=== PATIENT | male | born 1960 | race Caucasian/White ===

== ENCOUNTER 2020-11-13 16:27 | Inpatient (IN) ==
[2020-11-17] MEDS ORDERED: KETOTIFEN FUMARATE OP PRN (19:44)
[2020-11-18 07:50] LABS: Basophils # 0.1 K/mcL (0.0-0.2); Basophils % 0.4 %; Eosinophils # 0.4 K/mcL (0.0-0.6); Eosinophils % 3.3 %; Hemoglobin 11.2 g/dL (12.9-16.9); Immature Granulocytes % 0.8 % (0-4); Lymphocytes # 1.6 K/mcL (0.6-4.6); Lymphocytes % 14.2 %; Mean Corpuscular HGB Conc 32.9 g/dL (31.6-35.5); Mean Corpuscular Hemoglobin 30.1 pg (28.0-33.3); Mean Corpuscular Volume 91.4 fL (83.0-100.0); Mean Platelet Volume 9.3 fL (9.4-12.4); Monocytes # 0.9 K/mcL (0.0-1.3); Monocytes % 7.5 %; Neutrophils # 8.4 K/mcL (1.6-8.9); Platelet Count 382 K/mcL (140-400); Red Blood Count 3.72 M/mcL (4.19-5.50); Red Cell Distribution Width 13.6 % (11.5-14.5); Segmented Neutrophils % 73.8 %; White Blood Count 11.4 K/mcL (4.3-11.1)
[2020-11-18] MEDS: Metoprolol XL (24 HR) Succ 50 MG TAB.ER.24H PO SCH (07:51)
[2020-11-18] MEDS: Furosemide 40 MG TABLET PO SCH (07:51)
[2020-11-18] MEDS: *HR* OxyCODONE ER (12 HR) 10 MG TABLET PO PRN ×2 (07:51→21:24)
[2020-11-18 08:30] LABS: BUN/Creatinine Ratio 23 (6-26); Blood Urea Nitrogen 22 mg/dL (6-20); Carbon Dioxide 29 mEq/L (23-29); Chloride 97 mEq/L (98-107); Glucose 43 mg/dL (70-105); Osmolality,Calculated 274 (280-300); Potassium 4.1 mEq/L (3.5-5.1); Sodium 132 mEq/L (136-145); eGFR For African Americans > 60 (> 60); eGFR For Non-African Americans > 60 (> 60)
[2020-11-18] MEDS ORDERED: *HR* Dextrose 50 % in Water (Vial) 50 ML VIAL IVP PRN (16:32)
[2020-11-18] MEDS ORDERED: Dextrose Gel 15 GM/37.5 ML TUBE PO PRN ×4 (16:32→17:13)
[2020-11-18] MEDS ORDERED: D5% in Water 1,000 ML IVC PRN ×2 (16:32→17:13)
[2020-11-18] MEDS ORDERED: Insulin LISPRO 300 UNITS/3 ML VIAL SUBQ SCH ×2 (16:45→21:00)
[2020-11-18] MEDS: Insulin LISPRO 300 UNITS/3 ML VIAL SUBQ SCH ×2 (17:25→21:23)
[2020-11-18] MEDS ORDERED: Insulin LISPRO 300 UNITS/3 ML VIAL SUBQ STA (18:09)
[2020-11-18] MEDS: *HR* Heparin 5,000 UNIT/ML VIAL SQ SCH (21:22)
[2020-11-18 22:24] LABS: Estimated Average Glucose 260 mg/dl; Hemoglobin A1C 10.7 %
[2020-11-19] MEDS: *HR* Heparin 5,000 UNIT/ML VIAL SQ SCH ×3 (05:22→20:11)
[2020-11-19 05:49] LABS: Basophils # 0.1 K/mcL (0.0-0.2); Basophils % 0.7 %; Eosinophils # 0.4 K/mcL (0.0-0.6); Eosinophils % 3.8 %; Hematocrit 32.5 % (37.5-50.1); Hemoglobin 10.6 g/dL (12.9-16.9); Immature Granulocytes % 0.9 % (0-4); Lymphocytes # 1.8 K/mcL (0.6-4.6); Lymphocytes % 18.3 %; Mean Corpuscular HGB Conc 32.6 g/dL (31.6-35.5); Mean Corpuscular Hemoglobin 29.6 pg (28.0-33.3); Mean Corpuscular Volume 90.8 fL (83.0-100.0); Mean Platelet Volume 9.6 fL (9.4-12.4); Monocytes # 0.6 K/mcL (0.0-1.3); Monocytes % 6.3 %; Neutrophils # 6.8 K/mcL (1.6-8.9); Platelet Count 415 K/mcL (140-400); Red Blood Count 3.58 M/mcL (4.19-5.50); Red Cell Distribution Width 13.6 % (11.5-14.5); White Blood Count 9.7 K/mcL (4.3-11.1)
[2020-11-19 06:07] LABS: BUN/Creatinine Ratio 21 (6-26); Blood Urea Nitrogen 20 mg/dL (6-20); Calcium 8.6 mg/dL (8.6-10.3); Carbon Dioxide 26 mEq/L (23-29); Chloride 95 mEq/L (98-107); Glucose 299 mg/dL (70-105); Magnesium 1.8 mg/dL (1.6-2.6); Osmolality,Calculated 280 (280-300); Sodium 128 mEq/L (136-145); eGFR For African Americans > 60 (> 60); eGFR For Non-African Americans > 60 (> 60)
[2020-11-19] MEDS: *HR* Insulin Regular U-500 500 UNIT/ML SUBQ SCH ×3 (09:15→17:02)
[2020-11-19] MEDS: *HR* OxyCODONE ER (12 HR) 10 MG TABLET PO PRN ×2 (09:15→20:21)
[2020-11-19] MEDS: Metoprolol XL (24 HR) Succ 50 MG TAB.ER.24H PO SCH (09:16)
[2020-11-19] MEDS: Furosemide 40 MG TABLET PO SCH (09:16)
[2020-11-19] MEDS: Insulin LISPRO 300 UNITS/3 ML VIAL SUBQ SCH ×3 (09:19→17:03)
[2020-11-19] MEDS: Aspirin Enteric Coated 81 MG Tablet PO SCH (09:23)
[2020-11-20] MEDS: *HR* Heparin 5,000 UNIT/ML VIAL SQ SCH ×3 (05:39→20:50)
[2020-11-20] MEDS: Insulin LISPRO 300 UNITS/3 ML VIAL SUBQ SCH ×5 (09:16→20:50)
[2020-11-20] MEDS: *HR* Insulin Regular U-500 500 UNIT/ML SUBQ SCH ×3 (12:05→17:47)
[2020-11-20] MEDS: Furosemide 40 MG TABLET PO SCH (12:05)
[2020-11-20] MEDS: Metoprolol XL (24 HR) Succ 50 MG TAB.ER.24H PO SCH (12:05)
[2020-11-20] MEDS: *HR* OxyCODONE ER (12 HR) 10 MG TABLET PO PRN (20:51)
[2020-11-21] MEDS: *HR* Heparin 5,000 UNIT/ML VIAL SQ SCH ×3 (06:14→20:02)
[2020-11-21] MEDS: Insulin LISPRO 300 UNITS/3 ML VIAL SUBQ SCH ×4 (09:50→19:56)
[2020-11-21] MEDS: *HR* Insulin Regular U-500 500 UNIT/ML SUBQ SCH ×3 (09:51→16:53)
[2020-11-21] MEDS: *HR* OxyCODONE ER (12 HR) 10 MG TABLET PO PRN ×2 (09:51→22:00)
[2020-11-21] MEDS: Furosemide 40 MG TABLET PO SCH (09:51)
[2020-11-21] MEDS: Metoprolol XL (24 HR) Succ 50 MG TAB.ER.24H PO SCH (09:52)
[2020-11-22] MEDS: *HR* Heparin 5,000 UNIT/ML VIAL SQ SCH ×3 (06:05→20:19)
[2020-11-22] MEDS: *HR* Insulin Regular U-500 500 UNIT/ML SUBQ SCH ×3 (09:08→17:34)
[2020-11-22] MEDS: *HR* OxyCODONE ER (12 HR) 10 MG TABLET PO SCH ×2 (09:19→20:18)
[2020-11-22] MEDS: Metoprolol XL (24 HR) Succ 50 MG TAB.ER.24H PO SCH (09:20)
[2020-11-22] MEDS: Insulin LISPRO 300 UNITS/3 ML VIAL SUBQ SCH ×4 (09:20→20:23)
[2020-11-22] MEDS: Furosemide 40 MG TABLET PO SCH (09:20)
[2020-11-23] MEDS: *HR* Heparin 5,000 UNIT/ML VIAL SQ SCH ×3 (05:47→20:29)
[2020-11-23] MEDS: Insulin LISPRO 300 UNITS/3 ML VIAL SUBQ SCH ×4 (07:58→20:32)
[2020-11-23] MEDS: Metoprolol XL (24 HR) Succ 50 MG TAB.ER.24H PO SCH (07:59)
[2020-11-23] MEDS: Furosemide 40 MG TABLET PO SCH (07:59)
[2020-11-23] MEDS: Aspirin Enteric Coated 81 MG Tablet PO SCH (07:59)
[2020-11-23] MEDS: *HR* OxyCODONE ER (12 HR) 10 MG TABLET PO SCH ×2 (07:59→20:29)
[2020-11-23] MEDS: *HR* Insulin Regular U-500 500 UNIT/ML SUBQ SCH ×3 (09:19→17:15)
[2020-11-24] MEDS: *HR* Heparin 5,000 UNIT/ML VIAL SQ SCH ×3 (05:31→20:41)
[2020-11-24] MEDS: Insulin LISPRO 300 UNITS/3 ML VIAL SUBQ SCH ×4 (07:42→22:07)
[2020-11-24] MEDS: *HR* Insulin Regular U-500 500 UNIT/ML SUBQ SCH ×3 (09:21→17:33)
[2020-11-24] MEDS: *HR* OxyCODONE ER (12 HR) 10 MG TABLET PO SCH ×2 (09:31→20:42)
[2020-11-24] MEDS: Metoprolol XL (24 HR) Succ 50 MG TAB.ER.24H PO SCH (09:32)
[2020-11-24] MEDS: Furosemide 40 MG TABLET PO SCH (09:40)
[2020-11-25] MEDS: *HR* Heparin 5,000 UNIT/ML VIAL SQ SCH ×3 (05:26→22:20)
[2020-11-25] MEDS: Furosemide 40 MG TABLET PO SCH ×2 (07:37→08:06)
[2020-11-25] MEDS: Metoprolol XL (24 HR) Succ 50 MG TAB.ER.24H PO SCH (08:06)
[2020-11-25] MEDS: *HR* OxyCODONE ER (12 HR) 10 MG TABLET PO SCH ×2 (08:06→22:17)
[2020-11-25] MEDS: *HR* Insulin Regular U-500 500 UNIT/ML SUBQ SCH ×3 (09:11→16:46)
[2020-11-25] MEDS: Insulin LISPRO 300 UNITS/3 ML VIAL SUBQ SCH ×4 (09:13→22:19)
[2020-11-26] MEDS: *HR* Heparin 5,000 UNIT/ML VIAL SQ SCH ×3 (05:40→22:15)
[2020-11-26] MEDS: *HR* OxyCODONE ER (12 HR) 10 MG TABLET PO SCH ×2 (08:25→20:37)
[2020-11-26] MEDS: Metoprolol XL (24 HR) Succ 50 MG TAB.ER.24H PO SCH (08:26)
[2020-11-26] MEDS: Furosemide 40 MG TABLET PO SCH (08:26)
[2020-11-26] MEDS ORDERED: Furosemide 20 MG TABLET PO ONE (09:50)
[2020-11-26] MEDS: Insulin LISPRO 300 UNITS/3 ML VIAL SUBQ SCH ×4 (09:59→22:03)
[2020-11-26] MEDS: *HR* Insulin Regular U-500 500 UNIT/ML SUBQ SCH ×3 (10:00→19:01)
[2020-11-26] MEDS: Aspirin Enteric Coated 81 MG Tablet PO SCH (10:12)
[2020-11-27] MEDS: Ondansetron ODT 4 MG TAB.RAPDIS SL PRN ×2 (05:48→21:26)
[2020-11-27] MEDS: *HR* Heparin 5,000 UNIT/ML VIAL SQ SCH ×3 (05:49→23:31)
[2020-11-27] MEDS ORDERED: Nitroglycerin 0.4 MG TAB.SUBL SL PRN (06:11)
[2020-11-27] MEDS ORDERED: Aspirin 325 MG TABLET PO ONE (06:12)
[2020-11-27] MEDS: *HR* OxyCODONE ER (12 HR) 10 MG TABLET PO SCH ×2 (07:54→21:21)
[2020-11-27] MEDS: Metoprolol XL (24 HR) Succ 50 MG TAB.ER.24H PO SCH (07:55)
[2020-11-27] MEDS: Insulin LISPRO 300 UNITS/3 ML VIAL SUBQ SCH ×3 (07:56→16:51)
[2020-11-27] MEDS: *HR* Insulin Regular U-500 500 UNIT/ML SUBQ SCH ×3 (07:56→16:50)
[2020-11-27] MEDS: Furosemide 40 MG TABLET PO SCH (07:57)
[2020-11-27] MEDS: Simethicone 80 MG TAB.CHEW PO PRN ×2 (09:46→16:50)
[2020-11-28] MEDS: Insulin LISPRO 300 UNITS/3 ML VIAL SUBQ SCH ×5 (01:33→20:14)
[2020-11-28] MEDS: Simethicone 80 MG TAB.CHEW PO PRN (06:11)
[2020-11-28] MEDS: *HR* Heparin 5,000 UNIT/ML VIAL SQ SCH ×3 (06:11→20:14)
[2020-11-28 08:13] LABS: Basophils # 0.1 K/mcL (0.0-0.2); Basophils % 0.9 %; Eosinophils # 0.3 K/mcL (0.0-0.6); Eosinophils % 2.2 %; Hematocrit 34.7 % (37.5-50.1); Hemoglobin 10.8 g/dL (12.9-16.9); Immature Granulocytes % 0.8 % (0-4); Lymphocytes # 1.7 K/mcL (0.6-4.6); Lymphocytes % 13.3 %; Mean Corpuscular HGB Conc 31.1 g/dL (31.6-35.5); Mean Corpuscular Hemoglobin 29.3 pg (28.0-33.3); Mean Corpuscular Volume 94.3 fL (83.0-100.0); Mean Platelet Volume 9.3 fL (9.4-12.4); Monocytes # 0.8 K/mcL (0.0-1.3); Monocytes % 6.3 %; Neutrophils # 9.8 K/mcL (1.6-8.9); Nucleated Red Blood Cells 0.2 /100 WBC (0); Platelet Count 344 K/mcL (140-400); Red Blood Count 3.68 M/mcL (4.19-5.50); Red Cell Distribution Width 15.3 % (11.5-14.5); Segmented Neutrophils % 76.5 %; White Blood Count 12.8 K/mcL (4.3-11.1)
[2020-11-28 08:29] LABS: Calcium 9.4 mg/dL (8.6-10.3); Potassium 4.7 mEq/L (3.5-5.1)
[2020-11-28] MEDS: Furosemide 40 MG TABLET PO SCH (09:15)
[2020-11-28] MEDS: *HR* OxyCODONE ER (12 HR) 10 MG TABLET PO SCH ×2 (09:15→20:13)
[2020-11-28] MEDS: *HR* Insulin Regular U-500 500 UNIT/ML SUBQ SCH ×3 (09:19→16:41)
[2020-11-28] MEDS: Metoprolol XL (24 HR) Succ 50 MG TAB.ER.24H PO SCH (09:21)
[2020-11-28] MEDS: *HR* Dextrose 50 % in Water (Vial) 50 ML VIAL IVP PRN ×2 (16:36→16:37)
[2020-11-28] MEDS: D5% in 0.9% NACL 1,000 ML IVC SCH (17:03)
[2020-11-28] MEDS ORDERED: *HR* Metoprolol 5 MG/5 ML VIAL IVP ONE ×2 (17:04→17:06)
[2020-11-28] MEDS ORDERED: Metoprolol XL (24 HR) Succ 50 MG TAB.ER.24H PO STA (17:07)
[2020-11-28] MEDS ORDERED: *HR* Metoprolol 5 MG/5 ML VIAL IVP PRN (20:11)
[2020-11-29] MEDS: D5% in 0.9% NACL 1,000 ML IVC SCH (03:16)
[2020-11-29] MEDS: *HR* Heparin 5,000 UNIT/ML VIAL SQ SCH ×3 (06:13→21:39)
[2020-11-29] MEDS: Insulin LISPRO 300 UNITS/3 ML VIAL SUBQ SCH ×4 (07:56→21:42)
[2020-11-29] MEDS: *HR* OxyCODONE ER (12 HR) 10 MG TABLET PO SCH ×2 (08:09→21:39)
[2020-11-29] MEDS: Furosemide 40 MG TABLET PO SCH (08:10)
[2020-11-29] MEDS ORDERED: Metoprolol XL (24 HR) Succ 25 MG TAB.ER.24H PO SCH ×2 (09:00)
[2020-11-29] MEDS: Simethicone 80 MG TAB.CHEW PO PRN ×2 (12:38→19:34)
[2020-11-30] MEDS: Insulin LISPRO 300 UNITS/3 ML VIAL SUBQ SCH ×6 (00:16→19:51)
[2020-11-30] MEDS: *HR* Heparin 5,000 UNIT/ML VIAL SQ SCH ×3 (06:41→21:16)
[2020-11-30] MEDS: Aspirin Enteric Coated 81 MG Tablet PO SCH (09:16)
[2020-11-30] MEDS: Simethicone 80 MG TAB.CHEW PO PRN ×2 (09:16→20:02)
[2020-11-30] MEDS: *HR* OxyCODONE ER (12 HR) 10 MG TABLET PO SCH ×2 (09:17→21:16)
[2020-11-30] MEDS: Furosemide 40 MG TABLET PO SCH (09:18)
[2020-11-30] MEDS ORDERED: Metoprolol XL (24 HR) Succ 25 MG TAB.ER.24H PO ONE (10:00)
[2020-12-01] MEDS: Insulin LISPRO 300 UNITS/3 ML VIAL SUBQ SCH ×6 (01:20→21:06)
[2020-12-01] MEDS: *HR* Heparin 5,000 UNIT/ML VIAL SQ SCH ×3 (05:08→21:06)
[2020-12-01] MEDS ORDERED: Metoprolol XL (24 HR) Succ 25 MG TAB.ER.24H PO SCH (09:00)
[2020-12-01] MEDS: *HR* OxyCODONE ER (12 HR) 10 MG TABLET PO SCH ×2 (09:22→21:05)
[2020-12-01] MEDS: Furosemide 40 MG TABLET PO SCH (09:22)
[2020-12-01] MEDS: Ondansetron ODT 4 MG TAB.RAPDIS SL PRN (13:20)
[2020-12-02] MEDS: Insulin LISPRO 300 UNITS/3 ML VIAL SUBQ SCH ×5 (00:40→17:09)
[2020-12-02] MEDS: *HR* Heparin 5,000 UNIT/ML VIAL SQ SCH ×3 (06:43→20:58)
[2020-12-02] MEDS: *HR* OxyCODONE ER (12 HR) 10 MG TABLET PO SCH ×2 (08:10→20:58)
[2020-12-02] MEDS: Furosemide 40 MG TABLET PO SCH (08:10)
[2020-12-02] MEDS: Simethicone 80 MG TAB.CHEW PO PRN (10:38)
[2020-12-03] MEDS: *HR* Heparin 5,000 UNIT/ML VIAL SQ SCH ×3 (05:02→21:53)
[2020-12-03] MEDS: Furosemide 40 MG TABLET PO SCH (08:14)
[2020-12-03] MEDS: *HR* OxyCODONE ER (12 HR) 10 MG TABLET PO SCH ×2 (08:14→21:50)
[2020-12-03] MEDS: Insulin LISPRO 300 UNITS/3 ML VIAL SUBQ SCH ×3 (08:15→16:46)
[2020-12-03] MEDS: Aspirin Enteric Coated 81 MG Tablet PO SCH (08:15)
[2020-12-03] MEDS: Nystatin POWDER 30 GM BOTTLE TP SCH (21:56)
[2020-12-04] MEDS: *HR* Heparin 5,000 UNIT/ML VIAL SQ SCH ×3 (05:30→21:11)
[2020-12-04] MEDS: *HR* OxyCODONE ER (12 HR) 10 MG TABLET PO SCH ×2 (08:11→21:12)
[2020-12-04] MEDS: Furosemide 40 MG TABLET PO SCH (08:11)
[2020-12-04] MEDS: Insulin LISPRO 300 UNITS/3 ML VIAL SUBQ SCH ×4 (08:12→21:10)
[2020-12-04] MEDS: Nystatin POWDER 30 GM BOTTLE TP SCH ×2 (08:18→21:12)
[2020-12-04] MEDS: Simethicone 80 MG TAB.CHEW PO PRN (13:57)
[2020-12-05] MEDS: *HR* Heparin 5,000 UNIT/ML VIAL SQ SCH ×3 (05:19→23:01)
[2020-12-05] MEDS: *HR* OxyCODONE ER (12 HR) 10 MG TABLET PO SCH ×2 (08:20→21:22)
[2020-12-05] MEDS: Furosemide 40 MG TABLET PO SCH (08:20)
[2020-12-05] MEDS: Insulin LISPRO 300 UNITS/3 ML VIAL SUBQ SCH ×7 (08:21→21:22)
[2020-12-05] MEDS: Nystatin POWDER 30 GM BOTTLE TP SCH ×2 (08:22→21:22)
[2020-12-05] MEDS: Simethicone 80 MG TAB.CHEW PO PRN (14:41)
[2020-12-06] MEDS: *HR* Heparin 5,000 UNIT/ML VIAL SQ SCH ×3 (06:49→20:32)
[2020-12-06] MEDS: Furosemide 40 MG TABLET PO SCH (08:24)
[2020-12-06] MEDS: *HR* OxyCODONE ER (12 HR) 10 MG TABLET PO SCH ×2 (08:25→20:31)
[2020-12-06] MEDS: Insulin LISPRO 300 UNITS/3 ML VIAL SUBQ SCH ×7 (08:26→20:29)
[2020-12-06] MEDS: Nystatin POWDER 30 GM BOTTLE TP SCH ×2 (08:27→20:31)
[2020-12-06] MEDS: Simethicone 80 MG TAB.CHEW PO PRN (16:14)
[2020-12-07] MEDS: *HR* Heparin 5,000 UNIT/ML VIAL SQ SCH ×3 (05:45→20:31)
[2020-12-07] MEDS: Aspirin Enteric Coated 81 MG Tablet PO SCH (09:15)
[2020-12-07] MEDS: *HR* OxyCODONE ER (12 HR) 10 MG TABLET PO SCH ×2 (09:16→20:30)
[2020-12-07] MEDS: Furosemide 40 MG TABLET PO SCH (09:17)
[2020-12-07] MEDS: Insulin LISPRO 300 UNITS/3 ML VIAL SUBQ SCH ×7 (09:17→20:32)
[2020-12-07] MEDS: Nystatin POWDER 30 GM BOTTLE TP SCH ×2 (09:18→20:32)
[2020-12-08] MEDS: *HR* Heparin 5,000 UNIT/ML VIAL SQ SCH ×3 (05:28→20:33)
[2020-12-08] MEDS: Insulin LISPRO 300 UNITS/3 ML VIAL SUBQ SCH ×7 (09:15→20:31)
[2020-12-08] MEDS: Nystatin POWDER 30 GM BOTTLE TP SCH ×2 (09:15→20:28)
[2020-12-08] MEDS: *HR* OxyCODONE ER (12 HR) 10 MG TABLET PO SCH ×2 (09:15→20:26)
[2020-12-08] MEDS: Furosemide 40 MG TABLET PO SCH (09:15)
[2020-12-09] MEDS: *HR* Heparin 5,000 UNIT/ML VIAL SQ SCH ×3 (08:33→20:09)
[2020-12-09] MEDS: Furosemide 40 MG TABLET PO SCH (08:33)
[2020-12-09] MEDS: *HR* OxyCODONE ER (12 HR) 10 MG TABLET PO SCH ×2 (08:33→20:09)
[2020-12-09] MEDS: Insulin LISPRO 300 UNITS/3 ML VIAL SUBQ SCH ×7 (08:34→20:13)
[2020-12-09] MEDS: Nystatin POWDER 30 GM BOTTLE TP SCH ×2 (08:35→20:10)
[2020-12-09 20:03] VITALS: O2SAT 96
[2020-12-10] MEDS: Furosemide 40 MG TABLET PO SCH (07:51)
[2020-12-10] MEDS: *HR* OxyCODONE ER (12 HR) 10 MG TABLET PO SCH (07:51)
[2020-12-10] MEDS: Aspirin Enteric Coated 81 MG Tablet PO SCH (07:51)
[2020-12-10] MEDS: *HR* Heparin 5,000 UNIT/ML VIAL SQ SCH (07:52)
[2020-12-10] MEDS: Insulin LISPRO 300 UNITS/3 ML VIAL SUBQ SCH ×4 (07:52→11:23)
[2020-12-10] MEDS: Nystatin POWDER 30 GM BOTTLE TP SCH (07:53)
[2020-12-10 08:46] VITALS: BP 124/72; PULSE 65; RESP 17; TEMP 97.4
== END 2020-12-10 14:45 | DRG 560 ==
LOC: INPPIK 11-17 23:56
PROVIDERS: ADMIT Family Medicine; ATTEND Family Medicine

== ENCOUNTER 2021-03-24 17:29 | Inpatient (IN) ==
[2021-03-26] MEDS ORDERED: Simethicone 80 MG TAB.CHEW PO PRN (00:20)
[2021-03-26] MEDS ORDERED: KETOTIFEN FUMARATE OP PRN (00:45)
[2021-03-26] MEDS ORDERED: *HR* OxyCODONE/APAP 10/325 TABLET PO ONE (02:17)
[2021-03-26 06:45] LABS: Basophils # 0.1 K/mcL (0.0-0.2); Basophils % 0.7 %; Eosinophils # 0.5 K/mcL (0.0-0.6); Eosinophils % 3.8 %; Hematocrit 37.8 % (37.5-50.1); Hemoglobin 11.7 g/dL (12.9-16.9); Immature Granulocytes % 0.5 % (0-4); Lymphocytes # 1.3 K/mcL (0.6-4.6); Lymphocytes % 10.9 %; Mean Corpuscular Hemoglobin 25.3 pg (28.0-33.3); Mean Corpuscular Volume 81.6 fL (83.0-100.0); Mean Platelet Volume 9.7 fL (9.4-12.4); Monocytes % 8.3 %; Neutrophils # 8.9 K/mcL (1.6-8.9); Platelet Count 354 K/mcL (140-400); Red Blood Count 4.63 M/mcL (4.19-5.50); Red Cell Distribution Width 17.2 % (11.5-14.5); Segmented Neutrophils % 75.8 %; White Blood Count 11.8 K/mcL (4.3-11.1)
[2021-03-26 07:06] LABS: Calcium 8.8 mg/dL (8.6-10.3); Potassium 4.6 mEq/L (3.5-5.1)
[2021-03-26 07:21] VITALS: TEMP 97.6
[2021-03-26] MEDS: Insulin LISPRO 300 UNITS/3 ML VIAL SUBQ SCH ×5 (08:26→16:34)
[2021-03-26] MEDS: Metoprolol XL (24 HR) Succ 50 MG TAB.ER.24H PO SCH ×2 (08:27→20:03)
[2021-03-26] MEDS: Insulin DETEMIR 100 UNIT/ML X5UNITS SUBQ SCH ×2 (08:27→20:09)
[2021-03-26] MEDS: *HR* OxyCODONE ER (12 HR) 10 MG TABLET PO SCH ×2 (08:27→20:03)
[2021-03-26] MEDS: Furosemide 40 MG TABLET PO SCH ×3 (08:27→18:03)
[2021-03-26] MEDS ORDERED: D5% in Water 1,000 ML IVC PRN (08:46)
[2021-03-26] MEDS ORDERED: Dextrose Gel 15 GM/37.5 ML TUBE PO PRN ×2 (08:46)
[2021-03-26] MEDS ORDERED: *HR* Dextrose 50 % in Water (Syg) 50 ML SYRINGE IVP PRN (08:46)
[2021-03-26] MEDS ORDERED: Silver Sulfadiazine 50 GM TUBE TP SCH (09:00)
[2021-03-26] MEDS ORDERED: NON-FORMULARY MEDICATION 1 EACH EACH (Omeprazole Magnesium [Prilosec Otc] 20 MG Tablet.Dr) PO SCH (09:00)
[2021-03-26] MEDS ORDERED: Loratadine 10 MG TABLET PO SCH (09:00)
[2021-03-26] MEDS ORDERED: lisinopriL 5 MG TABLET PO SCH (09:00)
[2021-03-26] MEDS ORDERED: Isosorbide MONOnitrate (24 HR) 30 MG TAB.ER.24H PO SCH (09:00)
[2021-03-26] MEDS ORDERED: Nystatin POWDER 30 GM BOTTLE TP SCH (09:00)
[2021-03-26 09:14] LABS: INR 1.9; Prothrombin Time 20.8 Seconds (9.4-12.1)
[2021-03-26] MEDS ORDERED: Budesonide/Formoterol 160/4.5 1 PUFF INH IH SCH (10:00)
[2021-03-26 10:05] VITALS: RESP 18
[2021-03-26] MEDS ORDERED: Warfarin perPT PO PRN (18:00)
[2021-03-26] MEDS ORDERED: *HR* Warfarin 0.5 MG TABLET PO ONE (18:00)
[2021-03-26] MEDS ORDERED: *HR* Warfarin 1 MG TABLET PO ONE (18:00)
[2021-03-26 20:04] VITALS: BP 127/74; PULSE 64; O2SAT 96
[2021-03-29] MEDS ORDERED: Aspirin Enteric Coated 81 MG Tablet PO SCH (09:00)
== END 2021-03-26 20:15 | DRG 564 ==
LOC: INPPIK 03-25 23:08
PROVIDERS: ADMIT Internal Medicine; ATTEND Internal Medicine